=== PATIENT | female | born 1950 | race Caucasian/White ===

== ENCOUNTER 2021-10-09 14:15 | Outpatient (RCR) | payer MEDICARE, BC, SELFPAY | END 2022-01-10 11:47 | disposition home or self-care (01) | PROVIDERS: PCP Internal Medicine; Visit Provider Surgery | DX: M62.89 Other specified disorders of muscle (principal); R15.2 Fecal urgency; Z51.89 Encounter for other specified aftercare | CPT/HCPCS: 97110; 97112; 97140; 97535 ==

== ENCOUNTER 2021-10-28 14:52 | Outpatient (CLI) | payer MEDICARE, BC, SELFPAY ==
[2021-10-28 18:54] LABS: Albumin* 4.6 g/dL (3.3-5.0); Chloride* 104 mmol/L (96-114)
[2021-10-28 18:55] LABS: Potassium* 5.4 mmol/L (3.6-5.1); Sodium* 143 mmol/L (135-149)
[2021-10-28 18:56] LABS: Creatinine Urine 146.5 mg/dL
[2021-10-28 18:57] LABS: Alkaline Phosphatase* 70 U/L (40-150); Aspartate Amino Transferase* 56 U/L (12-35); Bilirubin Total* 0.5 mg/dL (0.1-1.5); Blood Urea Nitrogen* 22 mg/dL (7-30); Carbon Dioxide* 29 mmol/L (20-32); Cholesterol* 127 mg/dL (90-199); Estimated Glomerular Filt Rate 60 ml/min; Glucose* 244 mg/dL (60-115); Total Protein* 6.7 g/dL (6.0-8.3); Triglycerides* 330 mg/dL (40-149)
[2021-10-28 18:58] LABS: Alanine Aminotransferase* 51 U/L (4-35); Calcium* 9.9 mg/dL (8.4-10.6); HDL Cholesterol* 44 mg/dL (>=50); LDL Cholesterol Calculated 17 mg/dL (<100)
[2021-10-28 19:28] LABS: Microalbumin Creatinine Ratio 150 mg/g (0-30); Microalbumin Urine 22 mg/dL
[2021-10-28 19:33] LABS: TSH With Reflex to FT4* < 0.015 uIU/mL (0.270-4.200)
== END 2021-10-28 14:53 | disposition home or self-care (01) ==
PROVIDERS: PCP Internal Medicine; Visit Provider Internal Medicine
DX: E03.9 Hypothyroidism, unspecified (principal); E11.9 Type 2 diabetes mellitus without complications; E66.9 Obesity, unspecified; R59.0 Localized enlarged lymph nodes; E78.5 Hyperlipidemia, unspecified
CPT/HCPCS: 80053; 80061; 82043; 82570; 84439; 84443

== ENCOUNTER 2021-12-04 07:58 | Outpatient (CLI) | payer MEDICARE, BC, SELFPAY ==
--- OUTSIDE RECORDS SUMMARY | 2021-12-04 08:01 | XMS_ITS | Clinical Summary ---
:1950 Author Organization [facility] [place] [address] Care Team Providers Name Role Phone Stuart Mai MD Primary Care Provider Nisreen Jones AuD Unavailable [phone] Allergies No known active allergies Medications Medication Sig Dispensed Refills Start Date End Date Status Levothyroxine 100 Take 1 Cap by mouth 0 Active mcg cap once daily. furosemide (LASIX) Take 20 mg by mouth 0 Active 20 mg tablet every morning. buPROPion Take 150 mg by mouth 0 Active (WELLBUTRIN SR; 2 times daily. ZYBAN) 150 mg Sustained-Release tablet nadolol (CORGARD) 40 Take 40 mg by mouth 0 Active mg tablet once daily. oxyCODONE-acetaminop Take 1-2 tablets by 30 tablet 0 5 Active hen, 5-325 mg, mouth every 4 hours (PERCOCET) 5-325 mg if needed for Pain. per Max acetaminophen tabletIndications: dose: 4000mg in 24 Renal mass hrs. Active Problems Problem Noted Date Sensorineural hearing loss, bilateral 11/11/2011 Renal mass Hypothyroidism Depression Hearing loss Migraines MALACHI (obstructive sleep apnea) Overview: mild Immunizations Name Administration Dates Next Due Tdap 02/04/2010 Social History Tobacco Use Types Packs/Day Years Used Date Never Smoker Smokeless Tobacco: Never Used Tobacco Cessation: Counseling Given: Yes Alcohol Use Standard Drinks/Week Comments No 0 (1 standard drink = 0.6 oz pure alcoho l) Sex Assigned at Date Recorded Not on file Obstetrics History Last Filed Vital Signs Vital Sign Reading Time Taken Comments Blood Pressure 128/89 11/13/2015 11:34 AM CDT Pulse 91 11/13/2015 11:34 AM CDT Temperature 36.9 ??C (98.4 ??F) 01/22/2015 8:00 AM THREAD SEPARATOR Respiratory Rate 20 01/22/2015 8:00 AM THREAD SEPARATOR Oxygen Saturation 99% 11/13/2015 11:34 AM CDT Inhaled Oxygen Concentration - - Weight 73.7 kg (162 lb 7.7 oz) 01/18/2015 6:27 AM THREAD SEPARATOR Height 155 cm (5' 1.02) 01/18/2015 6:27 AM THREAD SEPARATOR Body Mass Index 30.68 01/18/2015 6:27 AM THREAD SEPARATOR Plan of Treatment Health Maintenance Due Date Last Done Comments COVID-19 vaccine series (#1) 04/16/1951 Depression screening for age 12+ 1962 BMI (ht and wt on same day) for age 18+ 1968 Hepatitis C screening for age 18-79 1968 Colonoscopy through age 75 10/15/1995 Lipids for age 45-75 10/15/1995 Mammogram for age 45-75 10/15/1995 Zoster (shingles) series for age 50+ (1 of 2000 2) DEXA/DXA scan for age 65+ 10/15/2015 Medicare Wellness for age 65+ 10/15/2015 Pneumococcal series for age 65+ (1 - PCV) 10/15/2015 Influenza for age 65+ 10/17/2021 Tetanus booster 11/30/2021 12/01/2011, 02/04/2010 Tdap Completed 02/04/2010 Results Not on filefrom Last 3 Months Insurance Payer Benefit Plan / Subscriber ID Effective Dates Phone Addre ss Type Group BLUE CROSS [place] BLUE CROSS [id number] 2016-Present [address] [address] [place], [place] [id number] [phone] ([address]) JENY JEFFERSON [phone] Advance Directives Latest Code Status on File Code Status Date Activated Date Inactivated Comments Full Code 01/18/2015 1:17 PM 01/22/2015 5:25 PM Code Status Discussion: Discussed Full Code 01/18/2015 5:33 AM 01/18/2015 1:17 PM Code Status Discussion: Not Discussed Care Teams Investigation Clerk Relationship Specialty Start Date End Date Stuart Mai MD PCP - General Family Practice 09/23/11 Nisreen Jones, [facility] 11/07/11
[2021-12-04 08:30] LABS: Estimated Glomerular Filt Rate 60 ml/min
--- NOTE | 2021-12-04 09:00 | CRLHL7_ITS ---
For Patients: As a result of the Century Cures Act, medical imaging exams and procedure reports are released immediately into your electronic medical record. You may view this report before your referring provider. If you have questions, please contact your health care provider. Indication: LOCALIZED ENLARGED LYMPH NODES Technique: Postcontrast CT abdomen and pelvis. 74 cc Isovue 370 intravenous contrast. Please note that all CT scans at this facility use dose modulation, iterative reconstruction, and/or weight-based dosing when appropriate to reduce radiation dose to as low as reasonably achievable. Comparison: 06/13/2021 Findings: Within the lung bases, there are stable 3 millimeter or less nodules within the left lower lobe which do not require follow-up. Additional 3 millimeter unchanged nodule within the right middle lobe. Mild dependent atelectasis. No pleural effusion. No basilar infiltrate. Mild fatty infiltration of the liver. No intrahepatic mass. Gallbladder is unchanged. No calcified stone or biliary obstruction. Normal pancreas. Spleen normal. Stable low-density benign left adrenal adenoma. Stable 1 centimeters cyst lower pole right kidney. Left kidney absent. Right adrenal gland normal. Stable morphology, number and size of multiple mildly prominent retroperitoneal and mesenteric lymph nodes measuring up to 1.4 cm along with central mesenteric fat stranding. Normal appearance of the stomach. Normal small bowel. Bladder normal. Similar appearance of the uterus and ovaries. Mildly prominent lymph node along the right external iliac chain again noted. No bowel obstruction or inflammatory change. No evidence of appendicitis or diverticulitis. Stable appearance of the upper abdominal wall with small fat filled hernia. Grade 1 degenerative spondylolisthesis of L4 on L5. Osteopenia. No fracture. 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 Postoperative changes of left nephrectomy. Stable left adrenal adenoma. Stable small bilateral pulmonary nodules measuring 3 millimeters or less. Stable appearance of the anterior abdominal wall hernia containing fat. Please note that all CT scans at this facility use dose modulation, iterative reconstruction, and/or weight-based dosing when appropriate to reduce radiation dose to as low as reasonably achievable. Dictated by Rodríguez Leroy MD @ 12/04/2021 11:11:05 AM (Electronically Signed)
== END 2021-12-04 07:59 | disposition home or self-care (01) ==
PROVIDERS: PCP Internal Medicine; Visit Provider Internal Medicine
DX: R59.0 Localized enlarged lymph nodes (principal); E27.9 Disorder of adrenal gland, unspecified; K43.9 Ventral hernia without obstruction or gangrene; R91.8 Other nonspecific abnormal finding of lung field
CPT/HCPCS: 36415; 74177; 82565; Q9967

== ENCOUNTER 2022-02-25 08:14 | Outpatient (CLI) | payer MEDICARE, BC, SELFPAY ==
[2022-02-26 02:01] LABS: Free T4 Free Thyroxine* 0.81 ng/dL (0.70-1.85)
== END 2022-02-25 08:15 | disposition home or self-care (01) ==
LOC: NFLDREF 13:31
PROVIDERS: PCP Internal Medicine; Visit Provider Internal Medicine
DX: E03.9 Hypothyroidism, unspecified (principal)
CPT/HCPCS: 84439; 84443

== ENCOUNTER 2022-03-19 12:37 | Outpatient (CLI) | payer MEDICARE, BC, SELFPAY ==
--- NOTE | 2022-03-19 13:00 | CRLHL7_ITS ---
For Patients: As a result of the 21st Century Cures Act, medical imaging exams and procedure reports are released immediately into your electronic medical record. You may view this report before your referring provider. If you have questions, please contact your health care provider. INDICATION : Neck pain. Bilateral arm numbness. TECHNIQUE : Cervical spine MRI without contrast. The following sequences were obtained: Sagittal T1, T2 weighted and STIR sequences. GRE sequence. COMPARISON: COMPARISONCervical spine MRI from 09/24/2010. FINDINGS: Mild cervical kyphosis. No recent compression fracture or marrow replacing process. Large hemangiomas at the C4 and C5 levels. Partially empty sella. Patchy T2 hyperintensities within the brainstem, typical chronic microvascular ischemic changes. Cervical cord signal is normal. No extraspinal soft tissue abnormalities. Discs/Endplates: Bony fusion along the C5-6 interspace, likely surgical. Advanced disc height loss, disc desiccation and endplate remodeling at C6-7 and C7-T1. Mild disc degeneration elsewhere. Findings at individual levels as follows: Craniocervical junction: Alignment is maintained. C2-C3: A small central protrusion flattens the thecal sac. Right facet arthrosis contributes to mild right neural foraminal stenosis. No left neural foraminal stenosis or spinal canal stenosis. C3-C4: Trace anterolisthesis. Bilateral facet arthrosis with usual along the facet joints. Mild left and qraf-bo-sjfyrdoy right neural foraminal stenosis. No spinal canal stenosis. C4-C5: 5 millimeters anterolisthesis. Shallow disc osteophyte complex contacts the cord without deforming impaired posterior buckling of the ligamentum flavum. Overall moderate spinal canal stenosis. Bilateral uncovertebral and facet arthrosis contributes to mild to moderate left and advanced right neural foraminal stenosis with impingement of the exiting right C5 nerve root. Stir hyperintensity within the right facet bone marrow along with a facet joint effusion, most compatible with active degenerative synovitis. C5-C6: Postsurgical changes of interbody fusion. Right uncovertebral arthrosis with mild right neural foraminal stenosis. No left neural foraminal stenosis or spinal canal stenosis. C6-C7: Disc osteophyte complex, asymmetric to the right abuts the ventral cord and contributes to mild spinal canal stenosis. Bilateral uncovertebral arthrosis contributes to moderate right and moderately advanced left neural foraminal stenosis with impingement of the exiting left greater than right C7 nerve roots. C7-T1: 2 millimeters anterolisthesis. Shallow disc osteophyte complex with right central protrusion component contacts the ventral cord and contributes to mild spinal canal stenosis. Bilateral uncovertebral and facet arthrosis contributes to mild left and moderate right neural foraminal stenosis. T1-2: A right central protrusion contacts the ventral cord. No spinal canal stenosis. Bilateral facet arthrosis without significant neural foraminal stenosis. T2-3: Small right central protrusion flattens the thecal sac. Right-sided facet arthrosis. No spinal canal or neural foraminal stenosis. IMPRESSION: 1. Progression of cervical/upper thoracic spondylosis at every imaged level when compared to 2011 MRI. 2. At C4-5, moderate spinal canal stenosis, moderate left and advanced right neural foraminal stenosis with impingement of the exiting right C5 nerve root. Exuberant active degenerative synovitis involving the right-sided facet joint. 3. At C5-6, bony interbody fusion. 4. At C6-7, moderate right and moderately advanced left neural foraminal stenosis with impingement of the exiting left greater than right C7 nerve roots. 5. At C7-T1, moderate right neural foraminal stenosis. Dictated by Jason Saldaña MD @ 03/19/2022 3:49:38 PM (Electronically Signed)
== END 2022-03-19 12:38 | disposition home or self-care (01) ==
LOC: MRI 12:38
PROVIDERS: PCP Internal Medicine; Visit Provider Family Medicine
DX: R20.0 Anesthesia of skin (principal); M54.12 Radiculopathy, cervical region; M47.894 Other spondylosis, thoracic region; M48.02 Spinal stenosis, cervical region; M48.03 Spinal stenosis, cervicothoracic region
CPT/HCPCS: 72141

== ENCOUNTER 2022-04-01 09:05 | Outpatient (CLI) | payer MEDICARE, BC, SELFPAY ==
--- NOTE | 2022-04-01 09:15 | CRLHL7_ITS ---
For Patients: As a result of the Cures Act, medical imaging exams and procedure reports are released immediately into your electronic medical record. You may view this report before your referring provider. If you have questions, please contact your health care provider. BILATERAL SCREENING MAMMOGRAM WITH COMPUTER-AIDED DETECTION AND TOMOSYNTHESIS TECHNIQUE: CC and MLO views were obtained. These mammographic images have been obtained using full-field digital technique. These mammographic images were interpreted with the benefit of computer-aided detection. Breast Tomosynthesis was used in this interpretation. COMPARISON FILM: 01/14/21, 12/07/19, 11/12/18. FINDINGS: There are scattered areas of fibroglandular density IMPRESSION: There is no radiographic evidence for malignancy. ASSESSMENT: BI-RADS Category 2: Benign RECOMMENDATION: Routine screening mammogram in 1 year. A lay language report of this examination will be provided to the patient. Rodríguez Leroy M.D. Diagnostic Radiologist [email or web address] Transcribed: 2:42 [email or web address]/Dictated by: Rodríguez Leroy MD @ 04/01/2022 11:07:00 AM (Electronically Signed)
== END 2022-04-01 09:06 | disposition home or self-care (01) ==
LOC: MAMMO 09:06
PROVIDERS: PCP Internal Medicine; Visit Provider Internal Medicine
DX: Z12.31 Encounter for screening mammogram for malignant neoplasm of breast (principal)
CPT/HCPCS: 77063; 77067; 85651; 86140

== ENCOUNTER 2022-04-01 15:05 | Outpatient (CLI) | payer MEDICARE, BC, SELFPAY ==
[2022-04-01 17:34] LABS: C Reactive Protein* 1.4 mg/dL (0.5-1.0)
[2022-04-01 21:12] LABS: Erythrocyte SedimentationRate* 34 mm/hr (2-20)
== END 2022-04-01 15:06 | disposition home or self-care (01) ==
LOC: NFLDREF 15:07
PROVIDERS: PCP Internal Medicine; Visit Provider Internal Medicine
DX: M54.12 Radiculopathy, cervical region (principal)
CPT/HCPCS: 85651; 86140

== ENCOUNTER 2022-05-21 15:15 | Outpatient (RCR) | payer MEDICARE, BC, SELFPAY ==
--- NOTE | 2022-02-20 17:01 | PT.OPEX ---
PT [place] Outpatient Eval PT [facility] Outpatient Eval Start: 02/20/22 15:24 Freq: Status: Active Protocol: Document 02/20/22 15:25 [facility] (Rec: 02/20/22 16:17 [facility] [id number]) E-signed By William Ortiz, PT Physical Therapy Outpatient Evaluation Insurance Information Insurance Name Medicare B Insurance Information/Comments [place] Medical Diagnosis Dorsalgia, unspecified M54.9 Back pain Treating Diagnosis Cervicalgia M54.2 muscle weakness M62.[address] Laura Law Subjective Subjective Pt relates neck pain starting in November. She woke up with it and had a hard time lifting her head up. Neck stiff and painful for four days. She also could not lift her arms to shoulder height. She received nursing care partner for ultrasound and deep tissue massage. Pain lessened but she could not get full movement back in neck. Pt has also done two courses of steroids that really helped. Last course ended ~one week ago. Patient also relates being much more fatigued/generally weak lately and has lost 25 lbs since November. She doesn't have an appetite, and also was wanting to lose weight. PMH significant for two cervical spine surgeries 30 years ago Pt. is left handed Pain Comments R>L mid neck pain Also has pain that radiates down upper arm and into right thumb. Thumb gets numb and tingly. Date of Last Physician Visit 01/30/22 Current Work Status Administrative Supervisor Occupation office work for [employer] Precautions Treatment Precautions/Contraindications Cervical fusion, multilevel Therapy Limitations/Systems Review Not Limited Objective Range of Motion Cervical: Flexion: WNL, stretch at back of neck Extension: 25 deg, stiff Sidebend: Right 15 deg Left 15 deg, pulling pain right Rotation: Right 35 deg Left 40 deg UEs: flexion and abduction slow and end range limited by ~10-15 deg PROM: Right shoulder WNL except IR limited to ~65 deg and + shoulder pain horizontal abduction WNL, end range shoulder pain Strength Abduction: 4-/5, aching Flexion: 4-/5 aching ER: 5/5, painfree IR: 4/5 mild ache elbow flexion: 4-/5, painfree Palpation + PT right deltoid (bursa?), non tender over left deltoid cervical paraspinals hypertonus Posture Flattened cervical spine Other/Pertinent Objective Right UE: + median nerve tension test for thumb tingling Functional Test Performed & Score Overhead reach: weak and upper arm soreness Assessment Assessment/Impression 71 year old female with quick onset of neck pain/stiffness and bilateral UE weakness last November, of unknown origin. Course of treatment since then has been Chiropractic visits for ultrasound and deep massage, pain meds and two doses of steroid treatments. The steroids were most helpful . Today, she has neck pain max of 3/10, residual upper arm weakness and right thumb numbness & tingling. Objectively, she presents with very limited cervical spine ROM for extension, rotation and sidebend bilaterally likely due to h/o cervical fusion 30 years ago. Proximal upper extremity weakness accompanied by upper arm (R>L) aching and mild palpation tenderness right deltoid/bursa . Source of upper extremity weakness accompanied by generalized muscular aching unclear whether it is from cervical spine nerve impingement vs a muscular disorder. She also tested + for right median nerve tension that responded positively to flossing. Thumb numbness resolved post treatment. Primary Functional Limitations Any kind of lifting/carrying with arms, Looking down ( embroidery) or at computer for prolonged time Plan of Care Physical Therapy Goals In 6 weeks, patient will: 1) Be able to comfortably lift and carry a 10 lb bag of groceries with both arms, minimal arm aching 2) Work on computer or embroidery for one hour, neck painfree 3) Reach into overhead cabinet with right hand to retrieve a dish, painfree and without distress 4) Be I with HEP to continue to progress upper body painfree strength Coordination/Communication With Referral Source Treatment Plan/Direct Interventions Manual Therapy,Neuromuscular Re-ed,Self-Care/Home Management,Therapeutic Exercises Direct Interventions Clarification postural strengthening & Comments stretch, cervical stabilization, UE nerve flossing Frequency/Duration 1x/week for 6 weeks Patient Will Be Discharged From Therapy Independent w/HEP, Independently Progressing Evaluation Billing Complexity Moderate Certification Information Initial Certification Date 02/20/22 Ending Certification Date 04/24/22 Provider Signature Shows Agreement With POC & Medical Necessity Physician Signature & Date Requested Please Sign/Date Here Physician Comment/Change : Physician NPI Number #
== END 2022-09-04 23:59 | disposition home or self-care (01) ==
PROVIDERS: PCP Internal Medicine; Visit Provider Internal Medicine
DX: M54.9 Dorsalgia, unspecified (principal); M62.81 Muscle weakness (generalized); Z51.89 Encounter for other specified aftercare
CPT/HCPCS: 97110; 97140; 97162

== ENCOUNTER 2022-11-14 08:00 | Outpatient (RCR) | payer MEDICARE, BC, SELFPAY | END 2022-11-14 08:53 | disposition home or self-care (01) | PROVIDERS: PCP Internal Medicine; Visit Provider Physician Assistant | DX: M25.511 Pain in right shoulder (principal); Z51.89 Encounter for other specified aftercare; M75.41 Impingement syndrome of right shoulder | CPT/HCPCS: 97110; 97140; 97161; 97535 ==

== ENCOUNTER 2023-01-20 08:02 | Outpatient (CLI) | payer MEDICARE, BC, SELFPAY ==
--- OUTSIDE RECORDS SUMMARY | 2023-01-22 06:42 | XMS_ITS | Continuity of Care Document ---
Author Name Unknown Organization [facility] Address [address] [place] [address] Phone Care Team Providers Care Mutual Fund Analyst Name Role Phone Pasquale Downing MD Unavailable Unavailable Allergies, Adverse Reactions, Alerts Substance Reaction Status Criticality NARCOTIC ANTAGONIST Active No Infor mation ibuprofen Active No Information NSAIDS (Non-Steroidal Anti-Inflammatory Drug) Active No Information Medications Medication Instructions Dosage Effective Dates (start - stop) Status Comments LEVOTHYROXINE SODIUM (unknown strength) Not Available - Active ATORVASTATIN CALCIUM (unknown strength) Not Available - Active METFORMIN HCL (unknown strength) Not Available - Active Procedures Procedure Date Office/Outpatient Visit,Est, Mod 2022 Postop Followup Visit X-Ray Exam Of Neck Spine2-3 Views ACDF - Anterior Cervical Discectomy and Fusion Anterior Instrumentation, 2-3 Segments M Allograft, Structural Autograft, From Same Incision Office/Outpatient Visit,Est, Mod 2022 Office/Outpatient Visit,Est, Mod 2022 X-Ray Exam Of Neck Spine2-3 Views Office/Outpatient Visit,New, Mod 2022 X-Ray Exam Of Neck Spine, 4+ Views Mar- Advance Directives Directive Yes / No Effective Date File Name No Information Encounters Encounter Description Practice Location Reason(s) For Visit Diagnoses Date Provider Providers Copied on Encounter [facility], [address], [place], [place], [id number] , [place] tel: [phone] [facility] No Information 3 Milad Pasquale. [facility], [address], [address], [place], [place], [id number] , [place]. tel: [phone] Office/Outpa tient Visit,Est, Mod [facility], [address], [place], [place], [id number] , [place] tel: [phone] [facility] Arthrodesis statusSpondyloli sthesis, cervical region 3 Miladra Giordano. [facility], [address], [address], [place], [place], [id number] , [place]. tel: [phone] Referring Provider: Jocelyne Pinto [facility] [address] [place], [address]. tel:[phone] [facility], [address], [place], [place], [address] , [place] tel: [phone] [facility] [place] Radiculopathy, cervical regionOther spondylosis, cervical regionSpondyloli sthesis, cervical regionArthrodesi s status 3 Pardeep Calderon. [facility], [address] [place] [address] [address], [place], [place], [id number] , [place]. tel: [phone] Referring Provider: Jocelyne Pinto [facility] [address] [place], [address]. tel:[phone] [facility], [address], [place], [place], [address] , [place] tel: [phone] [facility] No Information 3 Salina Giordano. [facility], [address], [address], [place], [place], [address] , [place]. tel: [phone] Referring Provider: Jocelyne Pinto [facility] [address] [place], [address]. tel:[phone] Office/Outpa tient Visit,Est, Mod [facility], [address], [place], [place], [id number] , [place] tel: [phone] [facility] Arthrodesis statusRadiculopa thy, cervical regionOther spondylosis, cervical regionSpondyloli sthesis, cervical region Apr-2 0 3 Salina Giordano. [facility], [address] [place] [address], [address], [place], [place], [address] , [place]. [phone] Referring Provider: Jocelyne Pinto, [facility] [address] [place], [address]. [phone] Office/Outpa tient Visit,Est, Mod [facility], [address], [place], [place], [id number] , [place] tel: [phone] [facility] Other spondylosis, cervical regionRadiculopa thy, cervical regionArthrodesi s statusSpondyloli sthesis, cervical region Apr- 3 Pelkola Yumiko. [facility], [address] [place] [address] [address], [place], [place], [address] , [place]. [phone] Referring Provider: Jocelyne Pinto, [facility] [address] [place], [address]. tel:[phone] Office/Outpa tient Visit,New, Mod [facility], [address], [place], [place], [id number] , [place] tel:[phone] [facility] Other spondylosis with radiculopathy, cervical regionSpondyloli sthesis, cervical regionArthrodesi s statusWeakness Fe 3 Pelkola Yumiko. [facility], [address] [place] [address] [address], [place], [place], [id number] , [place]. tel:[phone] Referring Provider: Jocelyne Pinto [facility] [address] [place], [address]. tel:[phone] Family History Family Member Type Diagnosis Age At Onset No Information Payers Payer name Insurance type Covered [id number] Medicare Angie ALCALA [id number] Social History Type Description Quantity Date Captured Comments Sex Female Smoking Status No Information Chief Complaint And Reason For Visit No Information Reason For Referral Reason For Referral No Information Plan Of Treatment Date Type Action Status Future Order: Radiology Order AP Lateral Cervical (APlatcerv), Ordered on: Ordered Future Order: Radiology Order AP Lateral Cervical (APlatcerv), Ordered on: Ordered Future Order: Radiology Order F/ E Cervical (F/Ecervical), Ordered on: Ordered History Of Present Illness Encounter Date Complaint History Of Prese nt Illness No Information Functional Status Date Functional Assessmen t No Information Instructions Date Instruction Additional Infor mation No Information Assessments Type Assessment Date No Information Patient Care Teams Name Effective Dates (start - stop) Status Members No Information
== END 2023-01-20 08:03 | disposition home or self-care (01) ==
LOC: NFLDREF 01-22 06:41
PROVIDERS: PCP Internal Medicine; Referring Provider Internal Medicine; Visit Provider Internal Medicine
DX: E78.5 Hyperlipidemia, unspecified (principal); E03.9 Hypothyroidism, unspecified; E11.29 Type 2 diabetes mellitus with other diabetic kidney complication; R80.9 Proteinuria, unspecified
CPT/HCPCS: 80053; 80061; 82043; 82570; 84443

== ENCOUNTER 2023-04-02 14:59 | Outpatient (CLI) | payer MEDICARE, BC, SELFPAY ==
--- OUTSIDE RECORDS SUMMARY | 2023-04-02 15:05 | XMS_ITS | Continuity of Care Document ---
Author Name Unknown Organization [facility] Address [address] [place] [address] Phone Care Team Providers Care Plumbing Engineer Name Role Phone Pasquale Downing MD Unavailable Unavailable Allergies, Adverse Reactions, Alerts Substance Reaction Status Criticality NARCOTIC ANTAGONIST Active No Infor mation ibuprofen Active No Information NSAIDS (Non-Steroidal Anti-Inflammatory Drug) Active No Information Medications Medication Instructions Dosage Effective Dates (start - stop) Status Comments METFORMIN HCL (unknown strength) Not Available - Active ATORVASTATIN CALCIUM (unknown strength) Not Available - Active LEVOTHYROXINE SODIUM (unknown strength) Not Available - Active Procedures [...] [place], [address], [place], [place], [id number] , [place] tel: [phone] [facility] No Information 3 Milad Pasquale. [facility], [address], [address], [place], [place], [id number] , [place]. tel: [phone] Office/Outpa tient Visit,Est, Mod [facility], [address], [place], [place], [id number] , [place] tel: [phone] [facility] [place] Arthrodesis statusSpondyloli sthesis, cervical region 3 Miladra Giordano. [facility], [address], [address], [place], [place], [id number] , [place]. tel: [phone] Referring Provider: Jocelyne Pinto [facility] [address] [place], [address]. tel:[phone] [facility], [address], [place], [place], [id number] , [place] tel: [phone] [facility] [place] Radiculopathy, cervical regionOther spondylosis, cervical regionSpondyloli sthesis, cervical regionArthrodesi s status 3 Pardeep Calderon. [facility] [place], [address] [place] [address] [address], [place], [place], [id number] , [place]. tel: [phone] Referring Provider: Jocelyne Pinto [facility] [address] [place], [address]. tel:[phone] [facility], [address], [place], [place], [id number] , [place] tel: [phone] [facility] No Information 3 Salina Giordano. [facility] [place], [address], [address], [place], [place], [address] , [place]. tel: [phone] Referring Provider: Jocelyne Pinto [facility] [address] [place], [address]. tel:[phone] Office/Outpa tient Visit,Est, Mod [facility], [address], [place], [place], [id number] , [place] tel: [phone] [facility] [place] Arthrodesis statusRadiculopa thy, cervical regionOther spondylosis, cervical regionSpondyloli sthesis, cervical region Apr-2 0 3 Salina Giordano. [facility] [place], [address] [place] [address], [address], [place], [place], [id number] , [place]. [phone] Referring Provider: Jocelyne Pinto, [facility] [address] [place], [address]. [phone] Office/Outpa tient Visit,Est, Mod [facility], [address], [place], [place], [id number] , [place] tel: [phone] [facility] [place] Other spondylosis, cervical regionRadiculopa thy, cervical regionArthrodesi s statusSpondyloli sthesis, cervical region Apr- 3 Pelkola Yumiko. [facility], [address] [place] [address] [address], [place], [place], [id number] , [place]. [phone] Referring Provider: Jocelyne Pinto, [facility] [address] [place], [address]. tel:[phone] Office/Outpa tient Visit,New, Mod [facility], [address], [place], [place], [id number] , [place] tel:[phone] [facility] [place] Other spondylosis with radiculopathy, cervical regionSpondyloli sthesis, cervical regionArthrodesi s statusWeakness Fe 3 Pelkola Yumiko. [facility], [address] [place] [address] [address], [place], [place], [id number] , [place]. tel:[phone] Referring Provider: Jocelyne Pinto [facility] [address] [place], [address]. tel:[phone] Family History Family Member Type Diagnosis Age At Onset No Information Payers Payer name Insurance type Covered alliance [place] [id number] Medicare Angie ALCALA [id number] Social History Type Description Quantity Date [...]
--- OUTSIDE RECORDS SUMMARY | 2023-04-02 15:05 | XMS_ITS | Clinical Summary ---
Author Name Unknown Organization [facility] Address [place], [place] [address] Care Team Providers Care Human Resources Executive Name Role Phone Nisreen Jones AuD Unavailable [phone] Laura Law MD Primary Care Provider [phone] Allergies Active Allergy Reactions Criticality Noted Date Comments Nsaids (Non-Steroidal Anti-Inflammatory Drug) Intolerance-Can't Take 07/03/2022 Patient has one kidney. Medications Medication Sig Dispensed Refills Start Date End Date Status atorvastatin (LIPITOR) 20 mg tablet Take 20 mg by mouth once daily in the evening. 0 05/02/2022 Active metFORMIN (GLUCOPHAGE) 500 mg tablet Take 500 mg by mouth two times daily with meals. 0 06/23/2022 Active levothyroxine (SYNTHROID) 50 mcg tablet Take 50-100 mcg by mouth once daily. 50 mcg 4x/week and 100 mcg (2 tablets) 3x/week 0 05/28/2022 Active multivitamins-underground miner als-lutein (Multivitamin 50 Plus) tab tablet Take 1 Tablet by mouth once daily. 0 Active sennosides-docusate (SENOKOT S) (8.6-50 mg) tabletIndications:C onstipation due to opioid therapy Take 1 to 4 Tablets by mouth two times daily. 30 Tablet 0 07/09/2022 Active acetaminophen (TYLENOL EXTRA STRGTH) 500 mg tabletIndications:A cute post-operative pain Take 1-2 Tablets (500-1,000 mg) by mouth every 6 hours if needed for Pain. Max acetaminophen dose: 4000mg in 24 hrs. 0 07/09/2022 Active oxyCODONE (ROXICODONE) 5 mg immediate release tabletIndications:A cute post-operative pain Take one-half tablet (2.5 mg) by mouth every 4 hours if needed for Pain. 15 Tablet 0 07/09/2022 Active WalkerIndications:C ervical radiculopathy Walker with front wheels for home use for 3 months. 1 Each 0 07/09/2022 Active Active Problems Problem Noted Date Diagnosed Date Sensorineural hearing loss, bilateral 11/11/2011 Renal mass Hypothyroidism Depression Hearing loss Migraines MALACHI (obstructive sleep apnea) Overview: mild Cervical radiculopathy Overview: R arm, also bilateral arm weakness HLD (hyperlipidemia) Diabetes mellitus Essential tremor Immunizations Name Administration Dates Next Due Tdap 02/04/2010 Social History Tobacco Use Types Packs/Day Years Used Date Smoking Tobacco: Never Smokeless Tobacco: Never Tobacco Cessation:Counseling Given: Yes Alcohol Use Standard Drinks/Week Comments No 0 (1 standard drink = 0.6 oz pur e alcohol) Social Connections Answer Date Recorded Frequency of Communication with Friends and Fami ly Not on file 07/08/2022 Sex and Gender Information Value Date Recorded Sex Assigned at Not on file Gender Identity Not on file Sexual Orientation Not on file Obstetrics History Last Filed Vital Signs Vital Sign Reading Time Taken Comments Blood Pressure 122/54 07/09/2022 8:00 AM CDT Pulse 62 07/09/2022 8:00 AM CDT Temperature 36.7 ??C (98.1 ??F) 07/09/2022 8:00 AM CD T Respiratory Rate 16 07/09/2022 8:00 AM CDT Oxygen Saturation 97% 07/09/2022 8:00 AM CDT Inhaled Oxygen Concentration - - Weight 65.8 kg (145 lb) 07/07/2022 1:22 PM CDT Height 154.9 cm (5' 1) 07/07/2022 1:22 PM CDT Body Mass Index 27.4 07/07/2022 1:22 PM CDT Plan of Treatment Health Maintenance Due Date Last Done Comments Pneumococcal series for age 65+ (1 of 2 - PCV) 1956 Depression screening for age 12+ 1962 BMI (ht and wt on same day) for age 18+ 1968 Hepatitis C screening for age 18-79 1968 Colonoscopy through age 75 10/15/1995 Lipids for age 45-75 10/15/1995 Mammogram for age 45-75 10/15/1995 Zoster (shingles) series for age 50+ (1 of 2) 2000 DEXA/DXA scan for age 65+ 10/15/2015 Medicare Wellness for age 65+ 10/15/2015 Tetanus booster 11/30/2021 12/01/2011, 02/04/2010 COVID-19 vaccine series ( - 2022- season) 2022 11/14/2021 Influenza for age 65+ 10/17/2022 Tdap Completed 02/04/2010 Medical Devices Implanted Type Area Painter Structural Steel Device Identifier Shelf Expiration Date Model / Serial / Lot Plate Cerv 16.5mm Divergence Mini Stand Alone - [id number] Implanted:Qty: 1 on 07/08/2022 by Pasquale Downing MD at [facility] Spine [employer] Spine[employer]Or[employer] 01/22/2026 [id number] / / [id number] Screw Cerv 3.5x13mm Divergence Minip S-D Stand Alone - [id number] Implanted:Qty: 2 on 07/08/2022 by Pasquale Downing MD at [facility] Spine [employer] Spine/Ortho 08/28/2024 [id number] / / [id number] Bone [id number] Cornerstone Lasr Spacer - [id number] Implanted:Qty: 1 on 07/08/2022 by Pasquale Downing MD at [facility] Spine [employer] Spine/Ortho 09/10/2024 [id number] / [id number] / Advance Directives Latest Code Status on File Code Status Date Activated Date Inactivated Comments Full Code 07/08/2022 3:31 PM 07/09/2022 3:40 PM Question Answer Comments Code Status Discussion: Reviewed Preferences Code Status History Code Status Date Activated Date Inactivated Comments Full Code 01/18/2015 1:17 PM 01/22/2015 5:25 PM Question Answer Comments Code Status Discussion: Discussed Full Code 01/18/2015 5:33 AM 01/18/2015 1:17 PM Question Answer Comments Code Status Discussion: Not Discussed Care Teams Human Resources Executive Relationship Specialty Start Date End Date Laura Law MD [address] [place] [id number] PCP - General Internal Medicine 03/27/22 Nisreen Jones AuD Audiology 11/07/11
--- NOTE | 2023-04-02 15:20 | MM_ITS ---
Patient: SHANITA HONG Facility:?[facility] Patient ID:?[id number] Site Patient ID:?[id number]. Site :?[id number] Study:?XRay-Breast Bilateral 3D W/CAD-04/02/2023 4:32:07 PM Ordering Physician:Laura Mcdonnell Final Report: BILATERAL DIGITAL TOMOSYNTHESIS SCREENING MAMMOGRAM WITH COMPUTER-AIDED DETECTION CLINICAL HISTORY: Routine screening exam. COMPARISON: 04/01/2022, 01/14/2021, 12/07/2019 TECHNIQUE: Digital tomosynthesis mammogram in CC and MLO projections including computer- aided detection (CAD). BREAST COMPOSITION: Scattered fibroglandular densities. FINDINGS: RIGHT Breast: Normal breast tissue. No masses or achritectural distortion. No suspicious calcifications or adenopathy. LEFT Breast: Normal breast tissue. No masses or achritectural distortion. No suspicious calcifications or adenopathy. IMPRESSION: No suspicious findings. RECOMMENDATIONS: Annual bilateral screening mammography. BI-RADS category 1. Negative. . Dictated by Rodríguez Leroy MD @ 04/03/2023 9:35:34 AM Signed by:?Rodríguez Leroy MD @04/03/2023 9:35:34 AM (Electronic Signature
== END 2023-04-02 15:00 | disposition home or self-care (01) ==
LOC: MAMMO 14:59
PROVIDERS: PCP Internal Medicine; Visit Provider Internal Medicine
DX: Z12.31 Encounter for screening mammogram for malignant neoplasm of breast (principal)
CPT/HCPCS: 77063; 77067

== ENCOUNTER 2024-01-26 08:53 | Outpatient (CLI) | payer MEDICARE, BC, SELFPAY ==
--- OUTSIDE RECORDS SUMMARY | 2024-01-26 08:56 | XMS_ITS | Clinical Summary ---
Author Organization [facility] Address [place], [place] [address] Care Team Providers Care Technical Aid Name Role Phone Nisreen Álvarez Unavailable [phone] Laura Law MD Primary Care Provider [phone] Allergies Active Allergy Reactions Criticality Noted Date Comments Nsaids (Non-Steroidal Anti-Inflammatory Drug) Intolerance-Can't Take 07/03/2022 Patient has one kidney. Medications atorvastatin (LIPITOR) 20 mg tablet Take 20 mg by mouth once daily in the evening. 05/03/19 23 Active metFORMIN (GLUCOPHAGE) 500 mg tablet Take 500 mg by mouth two times daily with meals. 06/24/19 23 Active levothyroxine (SYNTHROID) 50 mcg tablet Take 50-100 mcg by mouth once daily. 50 mcg 4x/week and 100 mcg (2 tablets) 3x/week 05/29/19 23 Active multivitamins-min erals-lutein (Multivitamin 50 Plus) tab tablet Take 1 Tablet by mouth once daily. Active sennosides-docusa te (SENOKOT S) (8.6-50 mg) tabletIndications :Constipation due to opioid therapy Take 1 to 4 Tablets by mouth two times daily. 30 Tablet 3 12:42 PM CDT 07/10/19 23 Active acetaminophen (TYLENOL EXTRA STRGTH) 500 mg tabletIndications :Acute post-operative pain Take 1-2 Tablets (500-1,000 mg) by mouth every 6 hours if needed for Pain. Max acetaminophen dose: 4000mg in 24 hrs. 0 07/10/19 Active oxyCODONE (ROXICODONE) 5 mg immediate release tabletIndications :Acute post-operative pain Take one-half tablet (2.5 mg) by mouth every 4 hours if needed for Pain. 15 Tablet 12:42 PM CDT 07/10/19 Active WalkerIndications :Cervical radiculopathy Walker with front wheels for home use for 3 months. 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 Gender Identity Not on file Sexual Orientation Not on file Obstetrics History Last Filed Vital Signs Vital Sign Reading Time Taken Comments Blood Pressure 122/54 07/09/2022 8:00 AM CDT Pulse 62 07/09/2022 8:00 AM CDT Temperature 36.7 C (98.1 F) 07/09/2022 8:00 AM CDT Respiratory Rate 16 07/09/2022 8:00 AM CDT Oxygen Saturation 97% 07/09/2022 8:00 AM CDT Inhaled Oxygen Concentration - - Weight 65.8 kg (145 lb) 07/07/2022 1:22 PM CDT Height 154.9 cm (5' 1) 07/07/2022 1:22 PM CDT Body Mass Index 27.4 07/07/2022 1:22 PM CDT Plan of Treatment Health Maintenance Due Date Last Done Comments Depression screening for age 12+ 1962 BMI [...] 10/15/2015 Pneumococcal series for age 65+ (1 of 1 - PCV) 10/15/2015 Tetanus booster 11/30/2021 12/01/2011, 02/04/2010 COVID-19 vaccine series (2 - season) 2023 11/14/2021 Influenza for age 65+ 10/18/2023 RSV vaccine for adults or pr egnancy (1 - 1-dose 75+ series) 2025 Tdap Completed 02/04/2010 Medical Devices Implanted Type Area Check Weigher Device Identifier Shelf Expiration Date Model / Serial / Lot Plate Cerv 16.5mm Divergence Mini Stand Alone - [id number] Implanted:Qty: 1 on 07/08/2022 by Pasquale Downing MD at [facility] [employer] Spine[employer] 01/22/2026 [id number] / / [id number] Screw Cerv 3.5x13mm Divergence Minip S-D Stand Alone - [id number] Implanted:Qty: 2 on 07/08/2022 by Pasquale Downing MD at [facility] Spine [employer] Spine/[employer]tho 08/28/2024 [id number] / / [id number] Bone [id number] Corner[employer] Lasr Spacer - [id number] Implanted:Qty: 1 on 07/08/2022 by Pasquale Downing MD at [facility] Sp[facility] [employer] Spine[employer] 09/10/2024 [id number] / [id number] / Insurance ([employer]) [address] [place] [address] [place] ONLY MEDICARE PART A HB ONLY MEDICARE PART B HB ONLY [place] HB ONLY Advance Directives * Full Code (Latest Code Status on File) Date Activated Date Inactivated Comments 07/08/2022 3:31 PM 07/09/2022 3:40 PM Question Answer Comments Code Status Discussion: Reviewed Preferences * Full Code Date Activated Date Inactivated Comments 01/18/2015 1:17 PM 01/22/2015 5:25 PM Question Answer Comments Code Status Discussion: Discussed * Full Code Date Activated Date Inactivated Comments 01/18/2015 5:33 AM 01/18/2015 1:17 PM Question Answer Comments Code Status Discussion: Not Discussed Care Teams Technical Aid Relationship Specialty Start Date End Date Laura Law MD [address] [place] [id number] PCP - General Internal Medicine 03/27/22 Nisreen Álvarez AuD Audiology 11/07/11
== END 2024-01-26 08:54 | disposition home or self-care (01) ==
PROVIDERS: PCP Internal Medicine; Visit Provider Internal Medicine
DX: E11.29 Type 2 diabetes mellitus with other diabetic kidney complication (principal); E03.9 Hypothyroidism, unspecified; E78.5 Hyperlipidemia, unspecified; E66.9 Obesity, unspecified; R80.9 Proteinuria, unspecified
CPT/HCPCS: 80053; 80061; 82043; 82570; 84439; 84443

== ENCOUNTER 2024-04-26 10:02 | Outpatient (CLI) | payer MEDICARE, BC, SELFPAY ==
--- NOTE | 2024-04-26 10:15 | CRLHL7_ITS ---
For Patients: As a result of the Cures Act, medical imaging exams and procedure reports are released immediately into your electronic medical record. You may view this report before your referring provider. If you have questions, please contact your health care provider. BILATERAL SCREENING MAMMOGRAM WITH COMPUTER-AIDED DETECTION AND TOMOSYNTHESIS TECHNIQUE: CC and MLO views were obtained. These mammographic images have been obtained using full-field digital technique. These mammographic images were interpreted with the benefit of computer-aided detection. Breast Tomosynthesis was used in this interpretation. COMPARISON FILM: 04/02/23, 04/01/22, 01/14/21. FINDINGS: There are scattered areas of fibroglandular density IMPRESSION: There is no radiographic evidence for malignancy. ASSESSMENT: BI-RADS Category 1: Negative RECOMMENDATION: Routine screening mammogram in 1 year. A lay language report of this examination will be provided to the patient. Rodríguez Leroy M.D. Diagnostic Radiologist [email or web address] Transcribed: 2:15 p.[email or web address] [email or web address]/Dictated by: Rodríguez Leroy MD @ 04/26/2024 11:22:00 AM (Electronically Signed)
== END 2024-04-26 10:03 | disposition home or self-care (01) ==
LOC: MAMMO 10:06
PROVIDERS: PCP Internal Medicine; Visit Provider Internal Medicine
DX: Z12.31 Encounter for screening mammogram for malignant neoplasm of breast (principal)
CPT/HCPCS: 77063; 77067

== ENCOUNTER 2024-07-19 09:54 | Outpatient (CLI) | payer MEDICARE, BC, SELFPAY | END 2024-07-19 09:55 | disposition home or self-care (01) | LOC: NFLDREF 07-21 15:24 | PROVIDERS: PCP Internal Medicine; Referring Provider Internal Medicine; Visit Provider Internal Medicine | DX: E03.9 Hypothyroidism, unspecified (principal) | CPT/HCPCS: 84439; 84443 ==

== ENCOUNTER 2024-09-05 08:39 | Outpatient (CLI) | payer MEDICARE, BC, SELFPAY | END 2024-09-05 08:40 | disposition home or self-care (01) | LOC: NFLDREF 17:39 | PROVIDERS: PCP Internal Medicine; Referring Provider Internal Medicine; Visit Provider Internal Medicine | DX: E03.9 Hypothyroidism, unspecified (principal) | CPT/HCPCS: 84443 ==

== ENCOUNTER 2025-01-09 10:28 | Outpatient (CLI) | payer MEDICARE, BC, SELFPAY | END 2025-01-09 10:29 | disposition home or self-care (01) | PROVIDERS: PCP Internal Medicine; Visit Provider Internal Medicine | DX: E11.29 Type 2 diabetes mellitus with other diabetic kidney complication (principal); R80.9 Proteinuria, unspecified; E78.5 Hyperlipidemia, unspecified | CPT/HCPCS: 80053; 80061; 82043; 82570 ==

== ENCOUNTER 2025-01-17 09:20 | Outpatient (CLI) | payer MEDICARE, BC, SELFPAY | END 2025-01-17 09:21 | disposition home or self-care (01) | LOC: NFLDREF 01-21 01:27 | PROVIDERS: PCP Internal Medicine; Referring Provider Internal Medicine; Visit Provider Internal Medicine | DX: E11.29 Type 2 diabetes mellitus with other diabetic kidney complication (principal); R80.9 Proteinuria, unspecified; E03.9 Hypothyroidism, unspecified | CPT/HCPCS: 80053; 80061; 82043; 82570; 84439; 84443 ==